=== PATIENT | female | born 1995 | race Caucasian/White ===

== ENCOUNTER → 2018-01-27 08:15 | Observation (INO) ==
[2018-01-26] MEDS: D5LR 1,000 ML IV SCH (19:30)
[2018-01-26 20:20] VITALS: BMI 32.8
[2018-01-27] MEDS: D5LR 1,000 ML IV SCH (03:34)
[2018-01-27 03:37] VITALS: O2SAT 97
[2018-01-27 07:58] VITALS: BP 114/65; PULSE 82; RESP 14; TEMP 96.5
[~2018-01-27 08:15] MED LIST: ACETAMINOPHEN 500 MG TABLET PO PRN; METOCLOPRAMIDE 10mg/2ml INJECTION IVP PRN; PROCHLORPERAZINE 10 MG/2 ML INJECTION IVP ONE
--- NOTE | 2018-01-27 11:02 | Progress Note ---
DATE: 01/27/2018 This is an OB patient of mine about 13 weeks gestational age who was in three days ago for 2 liters of IV fluids and then dismissed by my partner. Two days ago she was still having nausea problems, so Brad SAMAYOA was called out and she tried it. Yesterday she came into my office with large ketones and still having problems with being unable to keep anything down and nausea and vomiting with p.o. intake. So I sent her to [facility] and we gave her 3 bags of LR bolus until she was voiding well and then I switched her to D5 LR at 125 an hour. She still wasn't tolerating things well after the 2 liters, so we put her in overnight as an observation to continue the IV fluids running. She developed a headache last night and it was treated with IV Compazine. This morning she is sitting up in bed feeling much, much better and eating JELL-O. She wants to go home and is willing to try a diet at home. She is to keep her regularly scheduled appointment. Questions were answered to her satisfaction. CHAVO
== END | disposition home or self-care (01) ==
LOC: SRG
PROVIDERS: ADMIT Obstetrics & Gynecology; ATTEND Obstetrics & Gynecology